=== PATIENT | male | born 1995 | race Caucasian/White ===

== ENCOUNTER 2021-05-13 12:31 | Emergency (ER) | payer OTHER ==
[2021-05-13 12:43] VITALS: BP 126/70
== END 2021-05-13 15:05 | disposition home or self-care (01) ==
LOC: ED 12:31
DX: M25.461 Effusion, right knee (principal); X50.1XXA Overexertion from prolonged static or awkward postures, initial encounter; Y93.64 Activity, baseball; Y92.830 Public park as the place of occurrence of the external cause
CPT/HCPCS: 15977; L1830